=== PATIENT | male | born 1980 | race Caucasian/White ===

== ENCOUNTER 2018-08-12 19:06 | Emergency (ER) | payer BC, SELFPAY ==
--- NOTE | 2018-08-12 19:34 | RAD ---
RIGHT HAND THREE VIEWS: HISTORY: Hand pain. FINDINGS: There is a dislocation at the PIP joint. The middle phalanx is volarly displaced. I do not see a de finite associated fracture. IMPRESSION: Proximal interphalangeal joint dislocation of little finger. POS: JOANA
--- NOTE | 2018-08-12 19:50 | RAD ---
RIGHT HAND THREE VIEWS: 08/12/2018 HISTORY: Post reduction. COMPARISON: Study done on 08/12/2018 at 1903 hours. FINDINGS: There has been an interval reduction in the dislocation involving the proximal interphalangeal joint of the right small finger. No dislocation is seen on this exam and no fracture is seen. No other os seous abnormality. IMPRESSION: Interval reduction in the previously noted dislocation of the proximal interphalangeal joint, right s mall finger. No dislocation of fracture seen on this examination. POS: CONSTANTINO
== END 2018-08-12 19:56 | disposition home or self-care (01) ==
LOC: MADERS 19:06
DX: S63.286A Dislocation of proximal interphalangeal joint of right little finger, initial encounter (principal); I10 Essential (primary) hypertension; F17.210 Nicotine dependence, cigarettes, uncomplicated; W10.9XXA Fall (on) (from) unspecified stairs and steps, initial encounter
CPT/HCPCS: 26670; J2001